=== PATIENT | male | born 2000 | race Two or more races ===

== ENCOUNTER 2023-04-07 12:58 | Emergency (ER) | payer OTHER ==
[~2023-04-07] VITALS: Ht 177.8 cm; Wt 54.4 kg
[2023-04-07] MEDS ORDERED: FAMOTIDINE/PF 20 MG/2 ML VIAL IV ONE (15:00)
[2023-04-07] MEDS ORDERED: 0.9 % SODIUM CHLORIDE 500 ML IV ONE (15:00)
[2023-04-07] MEDS ORDERED: ONDANSETRON HCL 2 MG/ML VIAL IV ONE (15:00)
[2023-04-07 15:33] LABS: HEMATOCRIT 47.3 % (39.0-48.0); HEMOGLOBIN 16.3 g/dL (13-16.00); MEAN CELL VOLUME 87.3 fL (80.0-100.00); MEAN CORPUSCULAR HEMOGLOBIN 30.1 pg (27.00-32.0); MEAN CORPUSCULAR HGB CONC 34.5 g/dl (32.0-36.0); PLATELET COUNT 187 K/uL (150-450); RED BLOOD COUNT 5.41 M/uL (4.00-6.00)
[2023-04-07 15:57] LABS: ALBUMIN 4.3 gm/dL (3.4-5.0); BILIRUBIN TOTAL 1.71 mg/dL (0.3-1.2); CALCIUM 9.5 mg/dL (8.5-10.1); CREATININE SERUM 1.08 mg/dL (0.70-1.30); GFR 85.5; GLOBULINA 3.4 G/DL (2.4-3.5); POTASSIUM 3.8 mEq/L (3.5-5.1); TOTAL PROTEIN 7.7 gm/dL (6.4-8.2)
[2023-04-07 16:08] LABS: PH,URINE 5.5 (5.0-8.0); URINE APPEARANCE Clear; URINE BACTERIA 12.5 uL (0.0-1933); URINE BILIRRUBIN Negative (NEGATIVE); URINE BLOOD Negative; URINE COLOR Yellow; URINE GLUCOSE Negative (NEGATIVE); URINE LEUKOCYTE Negative; URINE NITRATE Negative; URINE PROTEIN Negative (NEGATIVE); URINE UROBILINOGEN 0.2 E.U./dl
[2023-04-07 16:11] LABS: URINE EPITHELIAL CELLS 0.3 uL (0.0-38.8)
[2023-04-07] MEDS ORDERED: PRILOSEC OTC20 MG PO (19:33)
[2023-04-07] MEDS ORDERED: ONDANSETRON ODT4 MG PO (19:33)
[2023-04-07] MEDS ORDERED: PEPCID AC20 MG PO (19:33)
== END 2023-04-07 19:47 ==
LOC: ER 12:59
PROVIDERS: Nurse Practitioner Family
DX: K29.70 Gastritis, unspecified, without bleeding (principal); R10.9 Unspecified abdominal pain